=== PATIENT | female | born 1975 | race Caucasian/White ===

== ENCOUNTER 2016-08-07 05:00 | Emergency (ER) | payer OTHER ==
[~2016-08-07] VITALS: Ht 162.6 cm; Wt 88.6 kg
[~2016-08-07 05:00] MED LIST: AMOXICILLIN 50500 MG PO; CEPHALEXIN500 M1 PO; NO HOME MEDICATIONS; PERCOCET 325 MG1 TA2 PO; ULTRAM 50MG TAB50 MG PO; WATER PILL; ZOFRAN8 MG PO
[2016-08-07 05:02] VITALS: BP 128/85; TEMP 97.8
[2016-08-07] MEDS ORDERED: PERCOCET 325 MG1 TA2 PO (05:37)
[2016-08-07 05:47] VITALS: PULSE 85
== END 2016-08-07 05:50 | disposition home or self-care (01) ==
LOC: COL.ER 05:00
DX: J32.0 Chronic maxillary sinusitis (principal); F17.210 Nicotine dependence, cigarettes, uncomplicated

== ENCOUNTER → 2016-11-04 | Outpatient (CLI) | payer MEDICAID ==
[2005-12-26 09:15] VITALS: TEMP 98.7
== END ==
LOC: COL.RAD 11:25
DX: J01.90 Acute sinusitis, unspecified (principal)

== ENCOUNTER → 2017-03-20 | Outpatient (REF) ==
[2005-12-26 09:15] VITALS: TEMP 98.7
[~2017-03-20] MED LIST changes: +ADIPEX-P37.5 MG PO; +DOXYCYCLINE 10100 MG PO; +DYAZIDE 25 MG-31 CAP PO; +MEDROL 4MG DOSPA4 MG PO; +MELATONIN5 M1 PO; +REMERON 15M15 MG/TA1 PO; +RESTORIL30 MG PO; +SAXENDA6 MG/ML SQ; +ZZZQUIL PO
== END ==
LOC: ZLAB.WCH 20:57
DX: Z01.89 Encounter for other specified special examinations (principal)

== ENCOUNTER → 2017-07-16 | Outpatient (CLI) | payer MEDICAID, BC ==
[~2017-07-16] VITALS: Ht 161.3 cm; Wt 84.6 kg
[~2017-07-16] MED LIST changes: -MELATONIN5 M1 PO; -REMERON 15M15 MG/TA1 PO; -ZZZQUIL PO
[2017-07-16 16:04] VITALS: BP 112/80; PULSE 84
== END ==
LOC: LIGHT 10:08
DX: R60.9 Edema, unspecified (principal); F51.04 Psychophysiologic insomnia; E66.9 Obesity, unspecified; Z68.32 Body mass index [BMI] 32.0-32.9, adult; Z71.3 Dietary counseling and surveillance; F41.1 Generalized anxiety disorder
CPT/HCPCS: G0463

== ENCOUNTER → 2017-08-04 | Outpatient (CLI) | payer BC, MEDICAID ==
[2005-12-26 09:15] VITALS: TEMP 98.7
== END ==
LOC: LIGHT 14:55
DX: Z01.89 Encounter for other specified special examinations (principal)

== ENCOUNTER → 2017-08-17 | Outpatient (CLI) | payer BC, MEDICAID ==
[2005-12-26 09:15] VITALS: TEMP 98.7
== END ==
LOC: LIGHT 14:11
DX: Z01.818 Encounter for other preprocedural examination (principal)

== ENCOUNTER → 2017-08-20 | Outpatient (CLI) | payer BC, MEDICAID ==
[~2017-08-20] VITALS: Ht 161.3 cm; Wt 84.8 kg
[2017-08-20 16:03] VITALS: BP 110/70; PULSE 88
== END ==
LOC: LIGHT 10:36
DX: R60.9 Edema, unspecified (principal); F51.04 Psychophysiologic insomnia; E66.9 Obesity, unspecified; Z68.32 Body mass index [BMI] 32.0-32.9, adult; Z71.3 Dietary counseling and surveillance; F41.1 Generalized anxiety disorder
CPT/HCPCS: G0463

== ENCOUNTER → 2017-09-24 | Outpatient (CLI) | payer BC, MEDICAID ==
[~2017-09-24] VITALS: Ht 161.3 cm; Wt 81.6 kg
[2017-09-24 10:15] VITALS: BP 110/72; PULSE 72
== END ==
LOC: LIGHT 09-17 10:26
DX: R60.9 Edema, unspecified (principal); F51.04 Psychophysiologic insomnia; E66.9 Obesity, unspecified; Z68.31 Body mass index [BMI] 31.0-31.9, adult; Z71.3 Dietary counseling and surveillance; F41.1 Generalized anxiety disorder
CPT/HCPCS: G0463

== ENCOUNTER → 2017-10-29 | Outpatient (CLI) | payer BC, MEDICAID ==
[~2017-10-29] VITALS: Ht 161.3 cm; Wt 82.6 kg
[2017-10-29 10:39] VITALS: BP 104/70; PULSE 72
== END ==
LOC: LIGHT 10:20
DX: R60.9 Edema, unspecified (principal); F51.04 Psychophysiologic insomnia; E66.9 Obesity, unspecified; Z68.31 Body mass index [BMI] 31.0-31.9, adult; Z71.3 Dietary counseling and surveillance; F41.1 Generalized anxiety disorder
CPT/HCPCS: G0463

== ENCOUNTER → 2017-12-17 | Outpatient (CLI) | payer BC, MEDICAID ==
[~2017-12-17] VITALS: Ht 161.3 cm; Wt 81.4 kg
[2017-12-17 13:04] VITALS: BP 100/70; PULSE 96
== END ==
LOC: LIGHT 12:57
DX: R60.9 Edema, unspecified (principal); F51.04 Psychophysiologic insomnia; E66.9 Obesity, unspecified; Z68.31 Body mass index [BMI] 31.0-31.9, adult; Z71.3 Dietary counseling and surveillance; F41.1 Generalized anxiety disorder
CPT/HCPCS: G0463

== ENCOUNTER → 2018-02-18 | Outpatient (CLI) | payer BC, MEDICAID ==
[~2018-02-18] VITALS: Ht 161.3 cm; Wt 81.9 kg
[2018-02-18 15:24] VITALS: BP 120/78; PULSE 80
== END ==
LOC: LIGHT 01-14 14:52
DX: R60.9 Edema, unspecified (principal); G47.00 Insomnia, unspecified; F41.9 Anxiety disorder, unspecified; E66.9 Obesity, unspecified; Z68.31 Body mass index [BMI] 31.0-31.9, adult; Z71.3 Dietary counseling and surveillance
CPT/HCPCS: G0463

== ENCOUNTER → 2018-04-01 | Outpatient (CLI) | payer BC, MEDICAID ==
[~2018-04-01] VITALS: Ht 161.3 cm; Wt 87.1 kg
[~2018-04-01] MED LIST changes: +MELATONIN5 M1 PO; +REMERON 15M15 MG/TA1 PO; +ZZZQUIL PO
[2018-04-01 16:12] VITALS: BP 116/86; PULSE 72
== END ==
LOC: LIGHT 14:45
DX: G47.00 Insomnia, unspecified (principal); F41.1 Generalized anxiety disorder; E66.9 Obesity, unspecified; Z68.33 Body mass index [BMI] 33.0-33.9, adult; Z71.3 Dietary counseling and surveillance
CPT/HCPCS: G0463

== ENCOUNTER → 2018-05-13 | Outpatient (CLI) | payer BC, MEDICAID ==
[~2018-05-13] VITALS: Ht 161.3 cm; Wt 85.0 kg
[2018-05-13 13:17] VITALS: BP 104/80; PULSE 76
== END ==
LOC: LIGHT 11:53
DX: G47.00 Insomnia, unspecified (principal); F41.1 Generalized anxiety disorder; E66.9 Obesity, unspecified; Z68.32 Body mass index [BMI] 32.0-32.9, adult; Z71.3 Dietary counseling and surveillance
CPT/HCPCS: G0463

== ENCOUNTER 2021-01-01 14:16 | Emergency (ER) | payer SELFPAY ==
[~2021-01-01] VITALS: Ht 162.6 cm; Wt 88.6 kg
[2021-01-01] MEDS ORDERED: VALIUM 2MG T2 MG/TAB PO (18:51)
[2021-01-01 19:10] VITALS: BP 138/72; PULSE 88; TEMP 98.1
== END 2021-01-01 19:10 | disposition home or self-care (01) ==
LOC: COL.ER 14:16
DX: F07.81 Postconcussional syndrome (principal); S00.03XA Contusion of scalp, initial encounter; F17.210 Nicotine dependence, cigarettes, uncomplicated; W51.XXXA Accidental striking against or bumped into by another person, initial encounter
CPT/HCPCS: J1885; J3360

== ENCOUNTER 2021-05-06 15:09 | Emergency (ER) | payer OTHER ==
[~2021-05-06] VITALS: Ht 162.6 cm; Wt 88.6 kg
[~2021-05-06 15:09] MED LIST changes: +VALIUM 2MG T2 MG/TAB PO
[2021-05-06 16:59] LABS: ALBUMIN 4.3 gm/dL (3.5-5.0); BASO # 0.1 K/mm3 (0.0-0.2); BASO % 0.6 % (0.0-2.0); BILIRUBIN,TOTAL 0.4 mg/dL (0.2-1.2); CALCIUM 11.6 mg/dL (8.4-10.2); CREATININE, serum 1.19 mg/dL (0.57-1.11); EOS # 0.1 K/mm3 (0.0-0.7); EOS % 0.7 % (0-4.0); GRAN # 12.5 K/mm3 (1.4-6.5); GRAN % 81.8 % (42.2-75.2); HEMATOCRIT 43.8 % (37.0-47.0); HEMOGLOBIN 15.6 g/dl (12.5-16.0); LYMPH # 1.9 K/mm3 (1.2-3.4); LYMPH % 12.4 % (20.0-51.0); MEAN CELL VOLUME 93 fl (80.0-100.0); MEAN CORPUSCULAR HEMOGLOBIN 33 pg (27.0-31.0); MEAN CORPUSCULAR HGB CONC 36 g/dl (33.0-37.0); MEAN PLATELET VOLUME 10.2 fl (7.4-10.4); MONO # 0.6 K/mm3 (0.1-0.6); PLATELET COUNT 280 K/mm3 (130-400); POTASSIUM 3.4 mmol/L (3.5-4.5); REDCELL DISTRIBUTION WIDTH-CV 13.2 % (11.5-14.5); TOTAL PROTEIN 7.9 gm/dL (6.2-8.1)
[2021-05-06 19:26] LABS: COLLECTION METHOD CLEAN CATCH
[2021-05-06 19:39] LABS: MUCOUS Present /lpf; PH 7 (5-8); SQUAMOUS EPITHELIAL 0-2 /hpf; URINE APPEARANCE Clear; URINE BACTERIA Rare /hpf; URINE BILIRUBIN Negative (NEGATIVE); URINE BLOOD 2+ (NEGATIVE); URINE COLOR Yellow; URINE GLUCOSE Negative (NEGATIVE); URINE KETONE Negative (NEGATIVE); URINE LEUKOCYTE ESTERASE Negative (NEGATIVE); URINE NITRATE Negative (NEGATIVE); URINE PROTEIN(semi-quant) Negative (NEGATIVE); URINE RBC >50 /hpf; URINE UROBILINOGEN Negative (NEGATIVE)
[2021-05-06] MEDS ORDERED: CEPHALEXIN500 M1 PO (21:38)
[2021-05-06 22:17] VITALS: BP 127/91; PULSE 85; TEMP 98.7
== END 2021-05-06 22:17 | disposition home or self-care (01) ==
LOC: COL.ER 15:09
PROVIDERS: Emergency Medicine
DX: N39.0 Urinary tract infection, site not specified (principal); D72.829 Elevated white blood cell count, unspecified; R74.02 Elevation of levels of lactic acid dehydrogenase [LDH]; Z90.49 Acquired absence of other specified parts of digestive tract; Z32.02 Encounter for pregnancy test, result negative
CPT/HCPCS: J0696; J2405; J3010; J7030; Q9967

== ENCOUNTER → 2023-09-25 | Outpatient (CLI) | payer OTHER ==
[~2023-09-25] MED LIST changes: +ADDERALL XR20 MG PO; +ATARAX 25MG25 MG/TAB PO; +CARAFATE 1GM1 G PO; +CYMBALTA 30MG30 MG PO; +DESYREL 100MG100 MG PO; +NP THYROID60 MG PO; +PRENATAL TABLET PO; +WELLBUTRIN XL300 M1 PO; +ZOFRAN ODT8 MG PO
== END ==
LOC: COL.RAD 09:01
DX: K43.9 Ventral hernia without obstruction or gangrene (principal)